=== PATIENT | male | born 1980 | race Caucasian/White ===

== ENCOUNTER 2017-11-09 11:36 | Emergency (ER) | payer SELFPAY ==
[~2017-11-09] VITALS: Ht 182.9 cm; Wt 115.9 kg
[2017-11-09 11:42] VITALS: BP 150/80; PULSE 73; RESP 18; TEMP 99.1; O2SAT 98
[2017-11-09] MEDS ORDERED: KETOROLAC TROMETHAMINE 60 MG/2 ML (IM) VIAL IM ONE (12:30)
[2017-11-09] MEDS ORDERED: PENI500T PO (12:30)
--- NOTE | 2017-11-09 12:42 | PD ---
HPI Chief Complaint: Facial Pain or Swelling Time Seen by Provider: 11:58 Travel History International Travel<30 days: No Contact w/Intl Traveler<30days: No Traveled to known affect area: No History of Present Illness HPI 37-year-old who presents to the emergency room for evaluation of left pain and swelling for the past several days that worsened at 3:00 this morning. Patient states pain woke him from sleep. Is localized to the left lower jaw without radiation. Worse when he pushes on it or moves his mouth. He has been taking 100 mg ibuprofen without relief in symptoms. He denies dental pain, ear pain, sore throat, fever, chills, nausea, or vomiting. Denies any chronic medical conditions or daily medications. [facility] Social History Tobacco Use: No Allergies-Medications (Allergen,Severity, Reaction): Coded Allergies: acetaminophen (Verified Allergy, Unknown, 11/09/17) hydrocodone (Verified Allergy, Unknown, 11/09/17) morphine (Verified Allergy, Unknown, 11/09/17) Reported Meds & Prescriptions Reported Meds & Active Scripts Active Penicillin V Potassium 500 Mg Tab 500 Mg PO Q6H 7 Days Review of Systems Except as stated in HPI: all other systems reviewed are Neg Physical Exam Narrative GENERAL: Well-nourished, well-developed male in no acute distress. Afebrile. Ambulatory. SKIN: Focused skin assessment warm/dry. HEAD: Normocephalic. EYES: No scleral icterus. No injection or drainage. DENTAL: No loose or chipped teeth. No malocclusion. No abscess. JAW: No tenderness to palpation of the TMJ. Patient can open his jaw about 2-3 cm. There is no surrounding erythema, induration, or ecchymosis. There is extreme tenderness to palpation of the left submental lymph node. Could be inflamed salivatory gland. NECK: Supple, trachea midline. No JVD or lymphadenopathy. CARDIOVASCULAR: Regular rate and rhythm without murmurs, gallops, or rubs. RESPIRATORY: Breath sounds equal bilaterally. No accessory muscle use. Data Data Last Documented VS Vital Signs Date Time Temp Pulse Resp B/P (MAP) Pulse Ox O2 Delivery O2 Flow Rate FiO2 11/09/17 11:42 99.1 73 18 150/80 (103) 98 Orders Orders Ketorolac Inj (Toradol Inj) (3/27/18 12:30) [facility] Medical Decision Making Medical Screen Exam Complete: Yes Emergency Medical Condition: Yes Medical Record Reviewed: Yes Differential Diagnosis Sialolithiasis, cellulitis, dental infection, abscess, TMJ disorder, tetanus Narrative Course 37-year-old male presents to the emergency room for evaluation of severe left lower jaw pain for the past several days that worsened this morning. No trauma or injury. No fever, chills, nausea, vomiting. Physical exam reveals good dentition overall. No tenderness to palpation of the TMJ. Patient can open his jaw about 2-3 cm. There is no surrounding erythema, induration, or ecchymosis. There is extreme tenderness to palpation of the left submandibular lymph node or inflamed salivatory gland. I suspect sialolithiasis. He was given Toradol in the ED for pain. I have low suspicion for infection given physical exam but because of patient's worsening pain, he will be treated empirically with Penicillin VK. Patient told to follow-up with a primary care physician or return for worsening symptoms. He understands and agrees to plan. Diagnosis Primary Impression: Sialolithiasis of submandibular gland Referrals: Primary Care Physician Additional Instructions: Rest and drink plenty of fluids. Take Penicillin VK as directed, until gone. Take ibuprofen with food as directed, as needed for pain. Apply ice to the affected area for 20 minutes at a time, as needed for pain and swelling. Follow-up with a primary care physician. Return to the emergency room for worsening symptoms. Med/Other Pt SpecificInfo: Prescription(s) given Scripts Penicillin V Potassium (Penicillin V Potassium) 500 Mg Tab 500 MG PO Q6H for Infection for 7 Days, #28 TAB 0 Refills Prov: Yoav Carroll MD 11/09/17 Disposition: 01 DISCHARGE HOME Condition: Stable Inez Ley Nov 09, 2017 12:42
== END 2017-11-09 12:54 | disposition home or self-care (01) ==
LOC: NED 11:36 → NEPK 12:54
DX: K11.5 Sialolithiasis (principal); Z88.6 Allergy status to analgesic agent; Z88.5 Allergy status to narcotic agent
CPT/HCPCS: 96372; 99283; J1885

== ENCOUNTER 2018-01-13 13:43 | Emergency (ER) | payer BC ==
[~2018-01-13] VITALS: Ht 182.9 cm; Wt 116.0 kg
[~2018-01-13 13:43] MED LIST: PENI500T PO
[2018-01-13 14:15] VITALS: BP 132/60; PULSE 85; RESP 24; TEMP 98.6; O2SAT 97
--- NOTE | 2018-01-13 15:17 | RADRPT ---
EXAM DATE: 01/13/2018 3:14 PM EDT AGE/SEX: 37 years / Male INDICATIONS: Chest pain CLINICAL DATA: This is the patient's initial encounter. Patient reports that signs and symptoms have been present for 1 day and indicates a pain score of 7/10. MEDICAL/SURGICAL HISTORY: None. None. COMPARISON: No prior [place] exams available for comparison. FINDINGS: A single AP view of the chest demonstrates the lungs to be symmetrically aerated without evidence of mass, infiltrate or effusion. The cardiomediastinal contours are unremarkable. Osseous structures a re intact. CONCLUSION: No acute cardiopulmonary disease Electronically signed by: Reggie Painting MD 01/13/2018 3:16 PM EDT
--- NOTE | 2018-01-13 15:36 | PD ---
HPI Chief Complaint: Psychiatric Symptoms Time Seen by Provider: 14:47 Travel History International Travel<30 days: No Contact w/Intl Traveler<30days: No Traveled to known affect area: No History of Present Illness HPI 37-year-old male presents the ED requesting psychiatric evaluation. Patient endorses increased anxiety over the last month. He attributes his anxiety to difficulties at work. He states that he has a new boss and has been under increased scrutiny. He states that he fears that he will lose his job. He states that he has worked very hard and he does not want to lose this job. He denies suicidal or homicidal ideation. He complains of palpitations, shortness of breath and left-sided chest pain with deep breathing. He attributes these symptoms to his anxiety. He states that the symptoms started around 8:00 today. Pain is rated 8/10, sharp, intermittent. States that he is otherwise healthy, takes no daily medications. He endorses occasional marijuana use. He denies cigarette smoking or illicit drug use. No family history of DE. PFSH Social History Tobacco Use: No Allergies-Medications (Allergen,Severity, Reaction): Coded Allergies: acetaminophen (Verified Allergy, Unknown, 11/09/17) hydrocodone (Verified Allergy, Unknown, 11/09/17) morphine (Verified Allergy, Unknown, 11/09/17) Reported Meds & Prescriptions Reported Meds & Active Scripts Active Penicillin V Potassium 500 Mg Tab 500 Mg PO Q6H 7 Days Review of Systems Except as stated in HPI: all other systems reviewed are Neg Physical Exam Narrative GENERAL: Well-nourished, well-developed white male no acute distress. PSYCH: Anxious, tearful. SKIN: Focused skin assessment warm/dry. HEAD: Normocephalic. EYES: No scleral icterus. No injection or drainage. NECK: Supple, trachea midline. No JVD or lymphadenopathy. CARDIOVASCULAR: Regular rate and rhythm without murmurs, gallops, or rubs. RESPIRATORY: Breath sounds clear and equal bilaterally. No accessory muscle use. GASTROINTESTINAL: Abdomen soft, non-tender, nondistended. Active bowel sounds. MUSCULOSKELETAL: No cyanosis, or edema. Walks with a normal gait. BACK: Nontender without obvious deformity. No CVA tenderness. Data Data Last Documented VS Vital Signs Date Time Temp Pulse Resp B/P (MAP) Pulse Ox O2 Delivery O2 Flow Rate FiO2 01/13/18 18:30 65 20 119/61 (80) 97 Room Air 01/13/18 14:15 98.6 Orders Orders Electrocardiogram (01/13/18 14:18) Complete Blood Count With Diff (01/13/18 14:18) Ckmb (Isoenzyme) Profile (01/13/18 14:18) Troponin I (01/13/18 14:18) Iv Access Insert/Monitor (01/13/18 14:18) Ecg Monitoring (01/13/18 14:18) Oxygen Administration (01/13/18 14:18) Oximetry (01/13/18 14:18) Comprehensive Metabolic Panel (01/13/18 14:18) Urinalysis - C+S If Indicated (01/13/18:18) Psych Screen (01/13/18 14:18) Drug Screen, Random Urine (01/13/18:18) Alcohol (Ethanol) (01/13/18 14:18) Salicylates (Aspirin) (01/13/18 14:18) Tylenol (Acetaminophen) (01/13/18 14:18) Chest, Single Ap (01/13/18 ) Lorazepam Inj (Ativan Inj) (01/13/18 16:00) CKMB (01/13/18 15:30) CKMB% (01/13/18 15:30) Diet Regular Basic (01/13/18 Dinner) Labs Laboratory Tests Test 01/13/18 15:30 White Blood Count 7.0 TH/MM3 Red Blood Count 5.48 MIL/MM3 Hemoglobin 16.0 GM/DL Hematocrit 46.7 % Mean Corpuscular Volume 85.1 FL Mean Corpuscular Hemoglobin 29.2 PG Mean Corpuscular Hemoglobin Concent 34.3 % Red Cell Distribution Width 13.6 % Platelet Count 267 TH/MM3 Mean Platelet Volume 9.5 FL Neutrophils (%) (Auto) 64.7 % Lymphocytes (%) (Auto) 25.1 % Monocytes (%) (Auto) 7.2 % Eosinophils (%) (Auto) 0.7 % Basophils (%) (Auto) 2.3 % Neutrophils # (Auto) 4.5 TH/MM3 Lymphocytes # (Auto) 1.8 TH/MM3 Monocytes # (Auto) 0.5 TH/MM3 Eosinophils # (Auto) 0.1 TH/MM3 Basophils # (Auto) 0.2 TH/MM3 CBC Comment DIFF FINAL Differential Comment Urine Color YELLOW Urine Turbidity CLEAR Urine pH 6.5 Urine Specific [place] 1.014 Urine Protein NEG mg/dL Urine Glucose (UA) NEG mg/dL Urine Ketones NEG mg/dL Urine Occult Blood NEG Urine Nitrite NEG Urine Bilirubin NEG Urine Urobilinogen 2.0 MG/DL Urine Leukocyte Esterase NEG Urine RBC LESS THAN 1 /hpf Urine WBC 1 /hpf Microscopic Urinalysis Comment CULT NOT INDICATED Blood Urea Nitrogen 10 MG/DL Creatinine 1.17 MG/DL Random Glucose 96 MG/DL Total Protein 7.4 GM/DL Albumin 3.9 GM/DL Calcium Level 8.9 MG/DL Alkaline Phosphatase 62 U/L Aspartate Amino Transf (AST/SGOT) 20 U/L Alanine Aminotransferase (ALT/SGPT) 25 U/L Total Bilirubin 0.5 MG/DL Sodium Level 143 MEQ/L Potassium Level 4.3 MEQ/L Chloride Level 110 MEQ/L Carbon Dioxide Level 22.0 MEQ/L Anion Gap 11 MEQ/L Estimat Glomerular Filtration Rate 71 ML/MIN Total Creatine Kinase 147 U/L Creatine Kinase MB LESS THAN 0.5 NG/ML Troponin I LESS THAN 0.02 NG/ML Salicylates Level 2.2 MG/DL Urine Opiates Screen NEG Acetaminophen Level LESS THAN 2.0 MCG/ML Urine Barbiturates Screen NEG Urine Amphetamines Screen NEG Urine Benzodiazepines Screen NEG Urine Cocaine Screen NEG Urine Cannabinoids Screen POS Ethyl Alcohol Level LESS THAN 3 MG/DL MDM Medical Decision Making Medical Screen Exam Complete: Yes Emergency Medical Condition: Yes Differential Diagnosis Adjustment disorder versus anxiety versus bipolar versus depression versus dementia versus electrolyte disorder versus malingering versus mood disorder versus ODD versus psychosis versus PTSD versus schizophrenia versus schizoaffective disorder versus substance-induced mood disorder versus other Narrative Course 37-year-old male presents the ED requesting psychiatric evaluation. Patient endorses increased anxiety over the last month. He attributes his anxiety to difficulties at work. He denies suicidal or homicidal ideation. He complains of palpitations, shortness of breath and left-sided chest pain with deep breathing. He attributes these symptoms to his anxiety. He states that the symptoms started around 8:00 today. Pain is rated 8/10, sharp, intermittent. States that he is otherwise healthy, takes no daily medications. He endorses occasional marijuana use. He denies cigarette smoking or illicit drug use. No family history of DE. Patient is afebrile, O2 sats 97% on room air on presentation. Physical exam reveals a anxious white male in no acute distress. Exam is otherwise reassuring. No concerning abnormalities of the CBC, CMP, UA. No acute changes on the EKG. Cardiac enzymes negative 1. Tox screen positive for cannabinoids. I discussed the results of the workup with the patient. I informed him that the psychiatrist has gone home for the evening and will not by psychiatry in the morning. He is medically cleared for psychiatric evaluation. Diagnosis Primary Impression: Anxiety Additional Impression: Medical clearance for psychiatric admission Anna Phillips January 13, 2018 15:36
[2018-01-13 15:38] VITALS: O2SAT 96
[2018-01-13] MEDS ORDERED: LORazepam 2 MG/ML VIAL IM ONE (16:00)
[2018-01-13 16:38] LABS: BILIRUBIN, URINE NEG (NEG); BLOOD, URINE NEG (NEG); GLUCOSE,URINE NEG (NEG); KETONE, URINE NEG (NEG); NITRITE,URINE NEG (NEG); PH, URINE 6.5 (5.0-8.5); URINE COLOR YELLOW (YELLW/STRAW); URINE LEUKOCYTE ESTERASE NEG (NEG)
[2018-01-13 16:39] LABS: AUTOMATED NEUTROPHIL # 4.5 TH/MM3 (1.8-7.7); BASOPHIL # 0.2 TH/MM3 (0-0.2); BASOPHIL % 2.3 % (0.0-2.0); EOSINOPHIL # 0.1 TH/MM3 (0-0.4); EOSINOPHIL % 0.7 % (0.0-4.0); HEMATOCRIT 46.7 % (39.0-51.0); LYMPH % 25.1 % (9.0-44.0); LYMPHOCYTE # 1.8 TH/MM3 (1.0-4.8); MEAN CELL VOLUME 85.1 FL (80.0-100.0); MEAN CORPUSCULAR HEMOGLOBIN 29.2 PG (27.0-34.0); MEAN CORPUSCULAR HGB CONC 34.3 % (32.0-36.0); MEAN PLATELET VOLUME 9.5 FL (7.0-11.0); MONO % 7.2 % (0.0-8.0); MONOCYTE # 0.5 TH/MM3 (0-0.9); NEUT % 64.7 % (16.0-70.0); PLATELET COUNT 267 TH/MM3 (150-450); RED BLOOD COUNT 5.48 MIL/MM3 (4.50-5.90); RED CELL DISTRIBUTION WIDTH 13.6 % (11.6-17.2)
[2018-01-13 16:51] LABS: ALT (GPT) 25 U/L (12-78)
[2018-01-13 16:58] LABS: ALBUMIN 3.9 GM/DL (3.4-5.0); ALKALINE PHOSPHATASE 62 U/L (45-117); AST (GOT) 20 U/L (15-37); BLOOD UREA NITROGEN 10 MG/DL (7-18); CALCIUM 8.9 MG/DL (8.5-10.1); CHLORIDE 110 MEQ/L (98-107); CREATININE 1.17 MG/DL (0.60-1.30); GLOMERULAR FILTRATION RATE 71 ML/MIN (>89); GLUCOSE,RANDOM 96 MG/DL (74-106); SODIUM (NA) 143 MEQ/L (136-145); TOTAL BILIRUBIN ADULT 0.5 MG/DL (0.2-1.0); TOTAL PROTEIN 7.4 GM/DL (6.4-8.2); TROPONIN I LESS THAN 0.02 NG/ML (0.02-0.05)
[2018-01-13 16:59] LABS: ACETAMINOPHEN LESS THAN 2.0 MCG/ML (10.0-30.0)
[2018-01-13 18:30] VITALS: BP 119/61; PULSE 65; RESP 20; O2SAT 97
[2018-01-13 22:54] VITALS: BP 137/60; PULSE 66; RESP 18; O2SAT 98
[2018-01-14 02:29] VITALS: BP 139/79; PULSE 72; RESP 18; TEMP 97.7; O2SAT 97
[2018-01-14 06:42] VITALS: BP 131/62; PULSE 77; RESP 18; O2SAT 99
[2018-01-14] MEDS ORDERED: hydrOXYzine PAMOATE 25 MG CAP PO ONE (12:00)
--- NOTE | 2018-01-14 12:05 | PD ---
History of Present Illness Chief Complaint: Psychiatric Symptoms Time Seen by Provider: 11:30 Travel History International Travel<30 Days: No Contact w/Intl Traveler<30days: No Known affected area: No Legal Status Legal Status: Voluntary History of Present Illness: History of Present Illness HPI 37-year-old, male with no previous psychiatric history presents the ED on a voluntary status requesting psychiatric evaluation. Patient reports that over the past month he has been experiencing symptoms of anxiety which he attributes to difficulties with his new boss at work. He goes on to state that his boss has filed multiple complaints against him and he has been under increased scrutiny and fears that he will lose his job. He states that he has been on FMLA for the past 3 months due to his symptoms of anxiety and is due to return to work on Wednesday, January 17. He has seen a therapist through his [employer] program on 3 different occasions. Goes on to state that "yesterday he began to experience a really bad panic attack with difficulty breathing and a heavy feeling on his chest. I was scared because I felt like I was having a heart attack and came to the hospital for help." The patient was medically cleared and has been in [facility]. He has presented no behavioral concerns. EMR reviewed. No previous contact with [facility] psychiatry. Current toxicology positive for cannabinoids. Patient is seen with case checker William hernandez. The patient is tearful at times. Maintains poor eye contact. He begins to hyperventilate at some point during the evaluation. There is no evidence of any psychosis, no bradley. No suicidal or homicidal ideation, intent or plan. Patient does present a rather confusing timeline. He reports that he received a promotion in March and that he has been having trouble with his boss since July. He alleges that the bosses filed numerous complaints against him and that he has contacted human resources. He alleges that when he is out in the community and sees a vehicle from one of his coworkers he becomes very anxious. He has an appointment with Dr. Murcia at [facility] on Wednesday. He goes on to state "I want to go back to work and I want to get treatment for this anxiety." Psychiatric History Psychiatric History Hx Psychiatric Treatment: pt states 1 year ago he attempted to take sleeping pills after his left him. [facility]. [facility] of [facility] Treatment: No Guns or firearms in home: Yes (For recreational purposes) Social History Born in [place] to parents. Parents when he was 6 years old. Completed 1 year of college. He has been twice and twice. He is now dating his first ex-. He has a 14-year-old son which she has sole custody of. He has an 11-year-old daughter who lives with her mother. 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 He currently lives with his 14-year-old son and his girlfriend. Hx Alcohol Use: Yes (occ) Hx Tobacco Use: No Hx Substance Use: No Substance Use Type: Marijuana Hx of Substance Use Treatment: No Family Psychiatric History Father with a substance use disorder Allergies-Medications (Allergen,Severity, Reaction): Coded Allergies: acetaminophen (Verified Allergy, Unknown, 11/09/17) hydrocodone (Verified Allergy, Unknown, 11/09/17) morphine (Verified Allergy, Unknown, 11/09/17) Reported Meds & Prescriptions Reported Meds & Active Scripts Active Penicillin V Potassium 500 Mg Tab 500 Mg PO Q6H 7 Days Review of Systems Psychiatric: COMPLAINS OF: Anxiety Except as stated in HPI: all other systems reviewed are Neg Mental Status Examination Appearance: Disheveled (Dressed in hospital attire. Unshaven.) Consciousness: Alert Orientation: x4 Motor Activity: Normal gait Speech: Unremarkable Language: Adequate Fund of Knowledge: Adequate Attention and Concentration: Adequate Memory: Unremarkable Mood: Anxious Affect: Other (Tearful) Thought Process & Associations: Intact, Logical, Goal directed Thought Content: Appropriate Hallucination Type: None Delusion Type: None Suicidal Ideation: No Suicidal Plan: No Suicidal Intention: No Homicidal Ideation: No Homicidal Plan: No Homicidal Intention: No Insight: Fair Judgment: Adequate MDM Medical Decision Making Medical Record Reviewed: Yes Assessment/Plan 37-year-old, male with no previous psychiatric history presents the ED on a voluntary status requesting psychiatric evaluation. Patient reports that over the past month he has been experiencing symptoms of anxiety which he attributes to difficulties with his new boss at work. Patient came to the hospital yesterday because he felt like he was having a really bad panic attack with shortness of breath and pressure on his chest. He also reports that he was afraid that he was having a heart attack. The patient was monitor and secure environment and presented no behavioral concerns. He presents no suicidal or homicidal ideation, intent or plan. There is no psychosis and no bradley. The patient has an appointment for psychiatric outpatient evaluation on January 17. He is encouraged to attend this appointment. After discussing risks benefits and side effects I prescribed him Vistaril 25 mg to be taken 3 times daily to help until he is seen by the outpatient psychiatrist. The patient was dosed here in the ED and evaluated approximately 30-60 minutes later. He reported that he felt better. The patient at this time is psychiatric clear for discharge from the ED. Orders Orders Electrocardiogram (01/13/18 14:18) Complete Blood Count With Diff (01/13/18 14:18) Ckmb (Isoenzyme) Profile (01/13/18 14:18) Troponin I (01/13/18 14:18) Iv Access Insert/Monitor (01/13/18 14:18) Ecg Monitoring (01/13/18 14:18) Oxygen Administration (01/13/18 14:18) Oximetry (01/13/18 14:18) Comprehensive Metabolic Panel (01/13/18 14:18) Urinalysis - C+S If Indicated (01/13/18 14:18) Psych Screen (01/13/18 14:18) Drug Screen, Random Urine (01/13/18 14:18) Alcohol (Ethanol) (01/13/18 14:18) Salicylates (Aspirin) (01/13/18 14:18) Tylenol (Acetaminophen) (01/13/18 14:18) Chest, Single Ap (01/13/18 ) Lorazepam Inj (Ativan Inj) (01/13/18 16:00) CKMB (01/13/18 15:30) CKMB% (01/13/18 15:30) Diet Regular Basic (01/13/18 Dinner) Diet Regular Basic (01/14/18 Breakfast) Diet Regular Basic (01/14/18 Lunch) Hydroxyzine Pamoate (Vistaril) (01/14/18 12:00) Results Vital Signs Date Time Temp Pulse Resp B/P (MAP) Pulse Ox O2 Delivery O2 Flow Rate FiO2 01/14/18 06:42 77 18 131/62 (85) 99 Room Air 01/14/18 02:29 97.7 72 18 139/79 (99) 97 Room Air 01/13/18 22:54 66 18 137/60 (85) 98 Room Air 01/13/18 18:30 65 20 119/61 (80) 97 Room Air 01/13/18 15:38 96 Room Air 01/13/18 15:38 96 Room Air 01/13/18 14:15 98.6 85 24 132/60 (84) 97 Laboratory Tests Test 01/13/18 15:30 White Blood Count 7.0 Red Blood Count 5.48 Hemoglobin 16.0 Hematocrit 46.7 Mean Corpuscular Volume 85.1 Mean Corpuscular Hemoglobin 29.2 Mean Corpuscular Hemoglobin Concent 34.3 Red Cell Distribution Width 13.6 Platelet Count 267 Mean Platelet Volume 9.5 Neutrophils (%) (Auto) 64.7 Lymphocytes (%) (Auto) 25.1 Monocytes (%) (Auto) 7.2 Eosinophils (%) (Auto) 0.7 Basophils (%) (Auto) 2.3 Neutrophils # (Auto) 4.5 Lymphocytes # (Auto) 1.8 Monocytes # (Auto) 0.5 Eosinophils # (Auto) 0.1 Basophils # (Auto) 0.2 CBC Comment DIFF FINAL Differential Comment Urine Color YELLOW Urine Turbidity CLEAR Urine pH 6.5 Urine Specific [place] 1.014 Urine Protein NEG Urine Glucose (UA) NEG Urine Ketones NEG Urine Occult Blood NEG Urine Nitrite NEG Urine Bilirubin NEG Urine Urobilinogen 2.0 Urine Leukocyte Esterase NEG Urine RBC LESS THAN 1 Urine WBC 1 Microscopic Urinalysis Comment CULT NOT INDICATED Blood Urea Nitrogen 10 Creatinine 1.17 Random Glucose 96 Total Protein 7.4 Albumin 3.9 Calcium Level 8.9 Alkaline Phosphatase 62 Aspartate Amino Transf (AST/SGOT) 20 Alanine Aminotransferase (ALT/SGPT) 25 Total Bilirubin 0.5 Sodium Level 143 Potassium Level 4.3 Chloride Level 110 Carbon Dioxide Level 22.0 Anion Gap 11 Estimat Glomerular Filtration Rate 71 Total Creatine Kinase 147 Creatine Kinase MB LESS THAN 0.5 Troponin I LESS THAN 0.02 Salicylates Level 2.2 Urine Opiates Screen NEG Acetaminophen Level LESS THAN 2.0 Urine Barbiturates Screen NEG Urine Amphetamines Screen NEG Urine Benzodiazepines Screen NEG Urine Cocaine Screen NEG Urine Cannabinoids Screen POS Ethyl Alcohol Level LESS THAN 3 Diagnosis Primary Impression: Medical clearance for psychiatric admission Additional Impression: Adjustment disorder Psychiatrically Cleared: Yes Med/ Other Pt Specific Info: Prescription(s) given Prescriptions Hydroxyzine Pamoate (Vistaril) 25 Mg Cap 25 MG PO TID Y for ANXIETY AND/OR INSOMNIA, #15 CAP 0 Refills Prov: Maddie Douglas 01/14/18 Disposition: 01 DISCHARGE HOME Condition: Stable Problem Qualifiers Additional Impression: Adjustment disorder Qualified Codes: F43.22 - Adjustment disorder with anxiety Maddie Douglas Jan 14, 2018 12:05
[2018-01-14] MEDS ORDERED: VIST25CA PO (13:24)
--- NOTE | 2018-01-14 13:57 | PD ---
Physical Exam Time Seen by Provider: 13:55 RANDY Carvajal has evaluated the patient and cleared the patient for discharge. Patient has a scheduled appointment with psychiatry on Wednesday for follow-up. Data Data Last Documented VS Vital Signs Date Time Temp Pulse Resp B/P (MAP) Pulse Ox O2 Delivery O2 Flow Rate FiO2 01/14/18 06:42 77 18 131/62 (85) 99 Room Air 01/14/18 02:29 97.7 Orders Orders Electrocardiogram (01/13/18 14:18) Complete Blood Count With Diff (01/13/18 14:18) Ckmb (Isoenzyme) Profile (01/13/18 14:18) Troponin I (01/13/18 14:18) Iv Access Insert/Monitor (01/13/18 14:18) Ecg Monitoring (01/13/18 14:18) Oxygen Administration (01/13/18 14:18) Oximetry (01/13/18 14:18) Comprehensive Metabolic Panel (01/13/18 14:18) Urinalysis - C+S If Indicated (01/13/18 14:18) Psych Screen (01/13/18 14:18) Drug Screen, Random Urine (01/13/18 14:18) Alcohol (Ethanol) (01/13/18 14:18) Salicylates (Aspirin) (01/13/18 14:18) Tylenol (Acetaminophen) (01/13/18 14:18) Chest, Single Ap (01/13/18 ) Lorazepam Inj (Ativan Inj) (01/13/18 16:00) CKMB (01/13/18 15:30) CKMB% (01/13/18 15:30) Diet Regular Basic (01/13/18 Dinner) Diet Regular Basic (01/14/18 Breakfast) Diet Regular Basic (01/14/18 Lunch) Hydroxyzine Pamoate (Vistaril) (01/14/18 12:00) Ed Discharge Order (01/14/18 13:57) Labs Laboratory Tests Test 01/13/18 15:30 White Blood Count 7.0 TH/MM3 Red Blood Count 5.48 MIL/MM3 Hemoglobin 16.0 GM/DL Hematocrit 46.7 % Mean Corpuscular Volume 85.1 FL Mean Corpuscular Hemoglobin 29.2 PG Mean Corpuscular Hemoglobin Concent 34.3 % Red Cell Distribution Width 13.6 % Platelet Count 267 TH/MM3 Mean Platelet Volume 9.5 FL Neutrophils (%) (Auto) 64.7 % Lymphocytes (%) (Auto) 25.1 % Monocytes (%) (Auto) 7.2 % Eosinophils (%) (Auto) 0.7 % Basophils (%) (Auto) 2.3 % Neutrophils # (Auto) 4.5 TH/MM3 Lymphocytes # (Auto) 1.8 TH/MM3 Monocytes # (Auto) 0.5 TH/MM3 Eosinophils # (Auto) 0.1 TH/MM3 Basophils # (Auto) 0.2 TH/MM3 CBC Comment DIFF FINAL Differential Comment Urine Color YELLOW Urine Turbidity CLEAR Urine pH 6.5 Urine Specific [place] 1.014 Urine Protein NEG mg/dL Urine Glucose (UA) NEG mg/dL Urine Ketones NEG mg/dL Urine Occult Blood NEG Urine Nitrite NEG Urine Bilirubin NEG Urine Urobilinogen 2.0 MG/DL Urine Leukocyte Esterase NEG Urine RBC LESS THAN 1 /hpf Urine WBC 1 /hpf Microscopic Urinalysis Comment CULT NOT INDICATED Blood Urea Nitrogen 10 MG/DL Creatinine 1.17 MG/DL Random Glucose 96 MG/DL Total Protein 7.4 GM/DL Albumin 3.9 GM/DL Calcium Level 8.9 MG/DL Alkaline Phosphatase 62 U/L Aspartate Amino Transf (AST/SGOT) 20 U/L Alanine Aminotransferase (ALT/SGPT) 25 U/L Total Bilirubin 0.5 MG/DL Sodium Level 143 MEQ/L Potassium Level 4.3 MEQ/L Chloride Level 110 MEQ/L Carbon Dioxide Level 22.0 MEQ/L Anion Gap 11 MEQ/L Estimat Glomerular Filtration Rate 71 ML/MIN Total Creatine Kinase 147 U/L Creatine Kinase MB LESS THAN 0.5 NG/ML Troponin I LESS THAN 0.02 NG/ML Salicylates Level 2.2 MG/DL Urine Opiates Screen NEG Acetaminophen Level LESS THAN 2.0 MCG/ML Urine Barbiturates Screen NEG Urine Amphetamines Screen NEG Urine Benzodiazepines Screen NEG Urine Cocaine Screen NEG Urine Cannabinoids Screen POS Ethyl Alcohol Level LESS THAN 3 MG/DL MDM Supervised Visit with AASHISH: No Narrative Course RANDY Perkins has evaluated the patient and cleared the patient for discharge. Patient has a scheduled appointment with psychiatry on Wednesday for follow-up. Patient contracts safety. Denies suicidal or homicidal ideations. Patient will be provided community resource packet to [facility] for follow-up. Has friends and family for support. Patient was medically cleared by alternate provider prior to psych screening. Patient has been evaluated by psychiatry and and is now cleared for discharge. Diagnosis Primary Impression: Anxiety Referrals: MARTY (Out patient) [facility] Primary Care Physician Psychiatrist [facility] Patient Instructions: Anxiety (ED), General Instructions Additional Instruction: Contract safety to your self and others Follow-up with your scheduled appointment on Wednesday to see psychiatry Follow-up with psychiatry Follow-up with primary care provider Follow-up with Francisco Zimmerman Return to the emergency department immediately with worsening of symptoms Med/Other Pt SpecificInfo: Prescription(s) given Scripts Hydroxyzine Pamoate (Vistaril) 25 Mg Cap 25 MG PO TID Y for ANXIETY AND/OR INSOMNIA, #15 CAP 0 Refills Prov: Maddie Douglas 01/14/18 Disposition: 01 DISCHARGE HOME Condition: Stable Vero Barcenas Jan 14, 2018 13:57
--- NOTE | 2018-01-14 14:56 | EKG ---
Date Performed: 01/13/2018 Time Performed: 14:31:30 PTAGE: 37 years EKG: Sinus rhythm MARKED LEFT AXIS DEVIATION POSSIBLE RIGHT VENTRICULAR CONDUCTION DELAY ABNORMAL ECG NO PREVIOUS TRACING DOCTOR: Mikel Gonzalez Interpretating Date/Time 01/14/2018 14:53:06
== END 2018-01-14 14:30 | disposition home or self-care (01) ==
LOC: NEPD 13:43 → NEPJ 01-14 14:30
DX: F43.22 Adjustment disorder with anxiety (principal); R06.02 Shortness of breath; F12.90 Cannabis use, unspecified, uncomplicated
CPT/HCPCS: 71045; 80053; 80307; 81001; 82550; 82552; 84484; 85025; 93005; 96372; 99285; J2060; Q0177